=== PATIENT | female | born 1965 | race Caucasian/White ===

== ENCOUNTER 2018-12-28 19:40 | Emergency (ER) | payer OTHER ==
[~2018-12-28] VITALS: Ht 162.6 cm; Wt 67.1 kg
[2018-12-28] MEDS ORDERED: SYNTHROID100 MC1 PO (19:51)
[2018-12-28] MEDS ORDERED: ZYRTEC10 M5 PO (19:51)
[2018-12-28 21:06] VITALS: BP 143/88
== END 2018-12-28 21:07 | disposition home or self-care (01) ==
LOC: M.ERS 19:40
DX: R04.0 Epistaxis (principal); Z88.0 Allergy status to penicillin